=== PATIENT | female | born 1980 | race Caucasian/White ===

== ENCOUNTER 2018-03-02 14:47 | Outpatient (CLI) | payer OTHER ==
[~2018-03-02 14:47] MED LIST: AMOXICILLIN500 M1 PO; PRENATAL CAPLE1 EACH PO
== END 2018-03-02 14:57 | disposition home or self-care (01) ==
LOC: RAD 14:47
DX: Q65.89 Other specified congenital deformities of hip (principal); M25.551 Pain in right hip

== ENCOUNTER 2018-08-01 07:57 | Outpatient (CLI) | payer OTHER | END 2018-08-01 13:06 | disposition home or self-care (01) | LOC: RAD 07:57 | DX: M25.859 Other specified joint disorders, unspecified hip (principal) ==

== ENCOUNTER 2018-08-02 07:35 | Outpatient (CLI) | payer OTHER | END 2018-08-02 16:40 | disposition home or self-care (01) | LOC: LAB 07:35 | DX: M25.851 Other specified joint disorders, right hip (principal); S73.191A Other sprain of right hip, initial encounter; L59.0 Erythema ab igne [dermatitis ab igne]; N39.0 Urinary tract infection, site not specified ==

== ENCOUNTER → 2019-02-24 | Outpatient (CLI) | payer OTHER | END | disposition home or self-care (01) | LOC: RAD 08:07 | DX: R05 Cough (principal) ==

== ENCOUNTER → 2019-05-24 | Outpatient (CLI) | payer OTHER | END | disposition home or self-care (01) | LOC: MAMO-SONO 09:11 | DX: N63.20 Unspecified lump in the left breast, unspecified quadrant (principal) ==

== ENCOUNTER 2019-06-19 09:12 | Outpatient (CLI) | payer OTHER | END 2019-06-19 10:41 | disposition home or self-care (01) | LOC: LAB 09:12 | DX: Z20.828 Contact with and (suspected) exposure to other viral communicable diseases (principal) ==

== ENCOUNTER 2019-08-22 08:21 | Emergency (ER) | payer OTHER ==
[~2019-08-22] VITALS: Ht 157.5 cm; Wt 53.5 kg
[2019-08-22] MEDS ORDERED: VITAMIN D310 MCG/1 M PO (09:14)
[2019-08-22] MEDS ORDERED: TURMERIC 500 M1 EACH PO (09:14)
[2019-08-22] MEDS ORDERED: VITAMIN C500 MG PO (09:14)
== END 2019-08-22 10:25 | disposition home or self-care (01) ==
LOC: ER 08:39
DX: S60.021A Contusion of right index finger without damage to nail, initial encounter (principal); L03.011 Cellulitis of right finger; W23.0XXA Caught, crushed, jammed, or pinched between moving objects, initial encounter; Y93.89 Activity, other specified; Y92.89 Other specified places as the place of occurrence of the external cause; Y99.8 Other external cause status

== ENCOUNTER 2019-09-20 08:33 | Outpatient (CLI) | payer OTHER ==
[~2019-09-20 08:33] MED LIST changes: +TURMERIC 500 M1 EACH PO; +VITAMIN C500 MG PO; +VITAMIN D310 MCG/1 M PO
== END 2019-09-20 15:58 | disposition home or self-care (01) ==
LOC: CERTIFICAD 08:33
DX: Z11.1 Encounter for screening for respiratory tuberculosis (principal)

== ENCOUNTER → 2019-12-29 11:12 | Outpatient (CLI) | payer OTHER | END | disposition home or self-care (01) | LOC: LAB 11:12 | PROVIDERS: ATTEND Colon & Rectal Surgery | DX: Z20.828 Contact with and (suspected) exposure to other viral communicable diseases (principal); Z11.59 Encounter for screening for other viral diseases ==

== ENCOUNTER 2020-01-19 10:46 | Outpatient (CLI) | payer OTHER | END 2020-01-19 14:26 | disposition home or self-care (01) | LOC: LAB 10:46 | PROVIDERS: ATTEND Colon & Rectal Surgery | DX: Z03.818 Encounter for observation for suspected exposure to other biological agents ruled out (principal) ==

== ENCOUNTER 2020-04-03 07:30 | Day surgery (SDC) | payer OTHER | END 2020-04-03 10:14 | disposition home or self-care (01) | LOC: AMB-ENDOS 07:30 | PROVIDERS: ATTEND Colon & Rectal Surgery | DX: K62.89 Other specified diseases of anus and rectum (principal); Z20.822 Contact with and (suspected) exposure to COVID-19; Z12.11 Encounter for screening for malignant neoplasm of colon ==

== ENCOUNTER → 2020-09-16 08:53 | Outpatient (CLI) | payer OTHER | END | disposition home or self-care (01) | LOC: LAB 08:53 | PROVIDERS: ATTEND Colon & Rectal Surgery | DX: Z20.828 Contact with and (suspected) exposure to other viral communicable diseases (principal); Z11.52 Encounter for screening for COVID-19 ==

== ENCOUNTER 2020-11-06 08:37 | Outpatient (CLI) | payer OTHER | END 2020-11-06 15:17 | disposition home or self-care (01) | LOC: LAB 08:37 | PROVIDERS: ATTEND Colon & Rectal Surgery | DX: Z20.828 Contact with and (suspected) exposure to other viral communicable diseases (principal); Z11.59 Encounter for screening for other viral diseases ==

== ENCOUNTER 2020-11-11 08:00 | Outpatient (CLI) | payer OTHER | END 2020-11-11 08:30 | disposition home or self-care (01) | LOC: PPH VACUNA 08:00 | PROVIDERS: ATTEND Emergency Medicine Pediatric Emergency Medicine | DX: Z23 Encounter for immunization (principal) ==

== ENCOUNTER 2021-04-16 11:30 | Outpatient (CLI) | payer OTHER | END 2021-04-16 12:12 | disposition home or self-care (01) | LOC: SONOGRAMA 11:30 | PROVIDERS: ATTEND Surgery | DX: N93.9 Abnormal uterine and vaginal bleeding, unspecified (principal); N39.9 Disorder of urinary system, unspecified ==

== ENCOUNTER 2022-06-22 09:17 | Outpatient (CLI) | payer OTHER | END 2022-06-22 15:14 | disposition home or self-care (01) | LOC: LAB 09:17 | PROVIDERS: ATTEND Colon & Rectal Surgery | DX: E55.9 Vitamin D deficiency, unspecified (principal); E78.00 Pure hypercholesterolemia, unspecified; E11.9 Type 2 diabetes mellitus without complications; N39.0 Urinary tract infection, site not specified; D50.0 Iron deficiency anemia secondary to blood loss (chronic); E03.8 Other specified hypothyroidism ==

== ENCOUNTER 2023-05-27 15:00 | Outpatient (CLI) | payer OTHER ==
[2023-05-27 15:36] LABS: HEMATOCRIT 36.6 % (36.0-45.00); HEMOGLOBIN 12.4 g/dL (12.0-15.00); MEAN CELL VOLUME 91.7 fL (80.00-100.00); MEAN CORPUSCULAR HEMOGLOBIN 31.1 pg (27.00-32.0); MEAN CORPUSCULAR HGB CONC 33.9 g/dl (32.0-36.0); PLATELET COUNT 266 K/uL (150-450); RED BLOOD COUNT 3.99 M/uL (4.00-6.00); RED CELL DISTRIBUTION WIDTH 12.7 % (11.5-14.5)
[2023-05-27 16:02] LABS: CALCIUM 9.5 mg/dL (8.5-10.1); CREATININE SERUM 0.64 mg/dL (0.55-1.02); GFR 101.76; PHOSPHOROUS 4.2 mg/dL (2.5-4.9); POTASSIUM 3.7 mEq/L (3.5-5.1)
== END 2023-05-27 17:18 | disposition home or self-care (01) ==
LOC: LAB 15:00
PROVIDERS: ATTEND Otolaryngology
DX: J03.90 Acute tonsillitis, unspecified (principal)

== ENCOUNTER 2024-05-29 12:09 | Outpatient (CLI) | payer OTHER ==
[2024-05-29 13:07] LABS: HEMATOCRIT 38.1 % (36.0-45.00); HEMOGLOBIN 13.2 g/dL (12.0-15.00); MEAN CELL VOLUME 91.7 fL (80.00-100.00); MEAN CORPUSCULAR HEMOGLOBIN 31.8 pg (27.00-32.0); MEAN CORPUSCULAR HGB CONC 34.7 g/dl (32.0-36.0); PLATELET COUNT 304 K/uL (150-450); RED BLOOD COUNT 4.16 M/uL (4.00-6.00); RED CELL DISTRIBUTION WIDTH 12.7 % (11.5-14.5)
[2024-05-29 13:13] LABS: PH,URINE 7.5 (5.0-8.0); URINE APPEARANCE Clear; URINE BILIRRUBIN Negative (NEGATIVE); URINE BLOOD Negative; URINE COLOR Yellow; URINE GLUCOSE Negative (NEGATIVE); URINE KETONE Negative (NEGATIVE); URINE LEUKOCYTE Negative; URINE NITRATE Negative; URINE PROTEIN Negative (NEGATIVE); URINE UROBILINOGEN 0.2 E.U./dl
[2024-05-29 13:14] LABS: ERYTHROCYTE SEDIMENTATION RATE 3 mm/hr
[2024-05-29 13:16] LABS: URINE BACTERIA 139.5 uL (0.0-1933); URINE EPITHELIAL CELLS 10.4 uL (0.0-38.8); URINE RBC 4.7 uL (0.0-20.8); URINE WBC 4.1 uL (0.0-23.2)
[2024-05-29 13:28] LABS: INR 1.05; PARTIAL THROMBOPLASTIN TIME 31.4 SECONDS (22.0-34.0); PROTHROMBIN TIME 11.4 SECONDS (9.0-11.5)
[2024-05-29 14:07] LABS: ALBUMIN 4.6 gm/dL (3.4-5.0); ALKALINE PHOSPHATASE 59 U/L (50-136); ALT/SGPT 25 U/L (12-78); ANION GAP 7 (10.0-20.0); AST/SGOT 22 U/L (15-37); BILIRUBIN TOTAL 0.42 mg/dL (0.3-1.2); BLOOD UREA NITROGEN 11 mg/dL (7-18); BUN CREA RATIO 19 (7.0-25.0); CALCIUM 9.8 mg/dL (8.5-10.1); CARBON DIOXIDE 34 mEq/L (21-32); CHLORIDE 100 mmol/L (98-107); CHOL HDL RATIO 2.7 (0-5.0); CHOLESTEROL 215 mg/dL (0-200); CREATININE SERUM 0.57 mg/dL (0.55-1.02); FREE TRIODOTIRONINE 2.71 pg/ml (2.18-3.98); GFR 115.76; GLOBULINA 3.9 G/DL (2.4-3.5); GLUCOSE FASTING 74 mg/dL (65-100); HDL 81 mg/dl (40-60); LDL 120 mg/dl (0-130); OSMOLALITY SERUM 272 MOSM/KG (275-295); POTASSIUM 4.12 mEq/L (3.5-5.1); SODIUM 137 mmol/L (136-145); T4 FREE 1.01 NG/ML (0.76-1.46); TOTAL PROTEIN 8.5 gm/dL (6.4-8.2); TRIGLYCERIDES 70 mg/dL (0-150); VLDL 14 (0-39)
[2024-05-29 14:13] LABS: C-REACTIVE PROTEIN < 0.29 MG/DL (0.00-0.29)
[2024-05-31 09:06] LABS: FOLLICLE STIMULATING HORMONE 7.6 mIU/mL (.); INSULIN LEVELS 1.7 uIU/mL (2.6-24.9); PROLACTIN 11.3 ng/mL (4.8-33.4)
[2024-05-31 11:10] LABS: ESTRADIOL SERUM 62.9 pg/mL (.)
== END 2024-05-29 12:25 | disposition home or self-care (01) ==
LOC: LAB 12:09
PROVIDERS: ATTEND Colon & Rectal Surgery
DX: K59.00 Constipation, unspecified (principal); K62.5 Hemorrhage of anus and rectum; D59.8 Other acquired hemolytic anemias; Z11.59 Encounter for screening for other viral diseases; Z20.828 Contact with and (suspected) exposure to other viral communicable diseases; D68.9 Coagulation defect, unspecified; D23.5 Other benign neoplasm of skin of trunk; K60.1 Chronic anal fissure; N64.4 Mastodynia; K63.5 Polyp of colon; N39.0 Urinary tract infection, site not specified

== ENCOUNTER 2024-10-27 07:54 | Outpatient (CLI) | payer OTHER ==
[2024-10-27 08:42] LABS: CREATININE SERUM 0.48 mg/dL (0.55-1.02)
== END 2024-10-27 08:05 | disposition home or self-care (01) ==
LOC: LAB 07:54
PROVIDERS: ATTEND Colon & Rectal Surgery
DX: R10.84 Generalized abdominal pain (principal)